=== PATIENT | male | born 1955 | race Caucasian/White ===

== ENCOUNTER 2021-11-06 17:23 | Observation (INO) ==
[2021-11-06] MEDS ORDERED: SODIUM CHLORIDE 0.9% 500 ML IV STA (18:00)
--- NOTE | 2021-11-06 18:15 | Emergency Department Note ---
Impression & Plan Precordial chest pain, Nausea, History of traumatic head injury ED Provider Note NAME: TRENT MAYA AGE: 66 SEX: M : 1955 ARRIVES VIA: Walk-In INFORMANT: [Patient] ED PROVIDER(S): [Julian Motley MD] CHIEF COMPLAINT: Nausea, chest pain HISTORY OF PRESENT ILLNESS: The patient is a 66-year-old male who did have a bit of chest pain last week. Today, he again had chest pain about 4 hours ago. He had 2 bouts each lasting about 15 minutes. The pain did come on at rest and lasted about 15 minutes. The pain was a 2/10. The pain did not radiate. He was not short of breath but he did sweat a bit and felt nauseated. He no longer has any chest discomfort and feels back to baseline. The patient has no diagnosed coronary disease. He did suffer some head trauma in the past and is asking for a CT of the head. He is concerned that the head trauma may have somehow led to his trouble today. There has been no cough or cold or congestion. No fever. He has not felt sick or ill otherwise. REVIEW OF SYSTEMS: See HPI for pertinent positives and negatives. A total of ten systems were reviewed and were otherwise negative. PMHx/PSHx: See Below SOCIAL HISTORY: See Below. PHYSICAL EXAM: GENERAL: Patient is in no acute distress. HEENT: No acute trauma, normocephalic atraumatic, mucous membranes moist, no nasal congestion, no scleral icterus. NECK: No stridor, no adenopathy, no meningismus, trachea is midline. LUNGS: Clear to auscultation bilaterally, no wheeze, no rhonchi, breath sounds equal. HEART: Without murmurs gallops or rubs, regular rate and rhythm. ABDOMEN: Soft, nontender, bowel sounds positive, no hernias, no peritonitis. EXTREMITIES: No cyanosis or edema, full range of motion of all the joints without pain or difficulty, no signs for acute trauma. NEUROLOGIC: Oriented x 3, no acute motor or sensory deficits, no focal weakness. SKIN: No rash, no jaundice, no diaphoresis. DIFFERENTIAL DIAGNOSIS: Cardiac ischemia, aortic dissection, pulmonary embolism, pneumothorax, pneumonia, pericarditis, myocarditis, esophageal rupture, GERD, cholecystitis, pancreatitis, musculoskeletal, intracranial bleeding, subdural or epidural hematoma, as well as other pathologies. EMERGENCY DEPARTMENT COURSE/PROCEDURES: ECG: Indication was chest pain. The ECG shows a normal sinus rhythm with a rate of 64. There is some LVH present. There is no ST elevation, no PVCs. So me nonspecific ST change was seen. The QTc is 462. Continuous Cardiac Monitoring: An order was placed for continuous cardiac monitoring. The monitor shows a rate of 69 with normal sinus rhythm. MEDICAL DECISION MAKING: There is no leukocytosis or concerning anemia. There is a normal platelet count. No coagulopathy. No significant electrolyte abnormality, no renal failure. No concerning liver enzyme elevation. No evidence for pancreatitis. The patient appeared to be in a euthyroid state. Covid test returned negative. Chest x-ray did not show pneumonia, mediastinal widening or pneumothorax. ECG showed a sinus rhythm, no obvious ischemia. Cardiac enzyme testing x1 was not consistent with acute cardiac injury. Brain CT showed no acute bleed or mass- effect. The patient received oral aspirin, he was given some IV saline. The patient presents with chest discomfort. The patient does have some cardiac risk factors. Given his presentation, I do think further cardiac work-up would be warranted. I do think a hospital stay is in order. I spoke with the patient, I talked to case management. The on-call hospitalist was consulted. Of note, I did perform a brain CT at his request. He had suffered some head trauma in the past and was concerned that some of his presentation today, in particular his nausea, could be caused from his head injury. Luckily, the brain CT was unremarkable. Past Med/Surg History Medical History Mixed conductive and sensorineural hearing loss Surgical History No pertinent past surgical history Family History Mother Myocardial infarction Denies family history of Ovarian cancer Prostate cancer Breast cancer Colorectal cancer Social History Smoking Status: Never smoker Tobacco Type: Smokeless Tobacco (Dip or Chew) Second Hand Exposure: No; Do You Dip or Chew Tobacco: No; Tobacco Cessation Education Requested by Patient: No Hx Alcohol Use: No Hx Substance Use: No Preferred Language: [place] Communication Ability: Effective District Court Judge Required: No Beliefs That Will Affect Care: None marital status: Current Living Situation: Spouse Current Living Situation Comment: With Family current occupational status: employed current occupation: Self Employeed How many Children do You have: 7 Other Information That Helps Us Care for You: No Feels Safe at Home: Yes Safety Concerns: Feels Safe At This Time Childhood Exposure to Second-Hand Smoke: No caffeine: Yes Dental Care, Regularly: No Physical Activity Frequency: 3-4 Times per Week Seatbelt Use: always Sunscreen Use: No Assistive Devices: None Allergies Allergies Allergy/AdvReac Type Severity Reaction Status Date / Time No Known Allergies Allergy Unverified 11/06/21 19:34 Home Meds Previous Rx's Medication Instructions Recorded hydrochlorothiazide 25 mg tablet 25 mg PO DAILY #90 tab 09/07/21 metoprolol tartrate 50 mg tablet 50 mg PO BID #180 tab 09/07/21 simvastatin 40 mg tablet 40 mg PO QPM #90 tab 09/07/21 sertraline 25 mg tablet 25 mg PO DAILY #30 tab 09/27/21 Results & Data (ED) Vital Signs Vital Signs - 24 hr 11/06/21 17:25 11/06/21 18:01 Temperature 36.8 C Temperature Source Temporal Artery Scan Pulse Rate 69 Respiratory Rate 22 Respiratory Effort / Characteristics Spontaneous Respiratory Depth Normal Respiratory Pattern Regular Blood Pressure 152/92 H Blood Pressure Mean 112 Blood Pressure Position Sitting Pulse Oximetry 93 Oxygen Delivery Method Room Air Room Air Sepsis Recent Fever Within 48 Hours No Sepsis New/Unexplained Change in Mental Status No Sepsis Action Taken by Nursing No Action Required Home Medications Current Medication List: was personally reviewed by me Laboratory Data Attestation: I reviewed the patient's lab results. Result diagrams: 11/06/21 18:16 11/06/21 18:16 Lab Results 11/06/21 11/06/21 11/06/21 Range/Units 18:16 18:16 18:16 WBC 7.43 (4.8-10.8) K/uL RBC 4.62 L (4.7-6.1) M/uL Hgb 14.6 (14.0-18.0) g/dL Hct 41.5 L (42-52) % MCV 89.8 (80-100) fL MCH 31.6 (25-34) pg MCHC 35.2 (32-36) g/dL RDW Std Deviation 47.8 H (36.4-46.3) fL RDW Coeff of Joanna 14.5 (11.5-14.5) % Plt Count 357 (130-400) K/uL MPV 9.8 (7.4-10.4) fL Immature Gran % (Auto) 0.1 % Neut % (Auto) 62.4 % Lymph % (Auto) 26.0 % [place] % (Auto) 10.2 % Eos % (Auto) 0.9 % Baso % (Auto) 0.4 % Neut # (Auto) 4.63 (1.4-6.5) K/uL Lymph # (Auto) 1.93 (1.2-3.4) K/uL [place] # (Auto) 0.76 H (0.11-0.59) K/uL Eos # (Auto) 0.07 (0-0.5) K/uL Baso # (Auto) 0.03 (0-0.2) K/uL Immature Gran # (Auto) 0.01 (0.00-0.02) K/uL PT (9.0-12.0) Seconds INR (0.9-1.1) APTT (21.0-31.0) Seconds PTT Ratio Sodium 136 (136-145) mmol/L Potassium 3.7 (3.5-5.1) mmol/L Chloride 100 (98-107) mmol/L Carbon Dioxide 26 (21-32) mmol/L Anion Gap 10 (3-11) BUN 13 (6-23) mg/dl Creatinine 0.81 (0.6-1.4) mg/dl Est Cr Clr Drug Dosing 90.0 ml/min Est GFR ( Amer) 108.9 ml/min Est GFR (Non-Af Amer) 93.9 ml/min BUN/Creatinine Ratio 16.0 (10-20) Glucose 96 (70-99(Fasting)) mg/dl Calcium 9.8 (8.5-10.1) mg/dl Magnesium 2.0 (1.7-2.4) mg/dl Total Bilirubin 0.5 (0.2-1.0) mg/dl AST 22 (13-39) U/L ALT 27 (7-52) U/L Alkaline Phosphatase 83 (34-104) U/L Troponin I < 0.03 (0-0.04) ng/ml Total Protein 7.6 (6.0-8.3) gm/dl Albumin 4.3 (3.4-5.0) gm/dl Globulin 3.3 (2.5-4.0) gm/dl Albumin/Globulin Ratio 1.3 (0.9-2) Lipase 36 (11-82) U/L TSH 2.618 (0.300-4.500) uIu/ml SARS-CoV-2, RNA, NAAT (NEGATIVE) 11/06/21 11/06/21 Range/Units 18:16 19:48 WBC (4.8-10.8) K/uL RBC (4.7-6.1) M/uL Hgb (14.0-18.0) g/dL Hct (42-52) % MCV (80-100) fL MCH (25-34) pg MCHC (32-36) g/dL RDW Std Deviation (36.4-46.3) fL RDW Coeff of Joanna (11.5-14.5) % Plt Count (130-400) K/uL MPV (7.4-10.4) fL Immature Gran % (Auto) % Neut % (Auto) % Lymph % (Auto) % [place] % (Auto) % Eos % (Auto) % Baso % (Auto) % Neut # (Auto) (1.4-6.5) K/uL Lymph # (Auto) (1.2-3.4) K/uL [place] # (Auto) (0.11-0.59) K/uL Eos # (Auto) (0-0.5) K/uL Baso # (Auto) (0-0.2) K/uL Immature Gran # (Auto) (0.00-0.02) K/uL PT 10.7 (9.0-12.0) Seconds INR 1.0 (0.9-1.1) APTT 26.2 (21.0-31.0) Seconds PTT Ratio 1.0 Sodium (136-145) mmol/L Potassium (3.5-5.1) mmol/L Chloride (98-107) mmol/L Carbon Dioxide (21-32) mmol/L Anion Gap (3-11) BUN (6-23) mg/dl Creatinine (0.6-1.4) mg/dl Est Cr Clr Drug Dosing ml/min Est GFR ( Amer) ml/min Est GFR (Non-Af Amer) ml/min BUN/Creatinine Ratio (10-20) Glucose (70-99(Fasting)) mg/dl Calcium (8.5-10.1) mg/dl Magnesium (1.7-2.4) mg/dl Total Bilirubin (0.2-1.0) mg/dl AST (13-39) U/L ALT (7-52) U/L Alkaline Phosphatase (34-104) U/L Troponin I (0-0.04) ng/ml Total Protein (6.0-8.3) gm/dl Albumin (3.4-5.0) gm/dl Globulin (2.5-4.0) gm/dl Albumin/Globulin Ratio (0.9-2) Lipase (11-82) U/L TSH (0.300-4.500) uIu/ml SARS-CoV-2, RNA, NAAT NEGATIVE (NEGATIVE) Administered Medications Metoprolol Tartrate (Metoprolol Tartrate 50 Mg Tab) 50 mg PO BID ALANNA Stop: 12/06/21 22:31 Last Admin: 11/06/21 23:39 Dose: 50 mg Documented by: [id number] Simvastatin (Simvastatin 40 Mg Tab) 40 mg PO QPM ALANNA Stop: 12/06/21 22:31 Last Admin: 11/06/21 23:39 Dose: 40 mg Documented by: [id number] Discontinued Medications Aspirin (Aspirin Chew 324 Mg) 324 mg PO NOW STA Stop: 11/06/21 19:40 Last Admin: 11/06/21 19:45 Dose: 324 mg Documented by: [id number] Sodium Chloride (Nss) 500 mls @ 999 mls/hr IV .Q31M STA Stop: 11/06/21 18:30 Last Infusion: 11/06/21 19:45 Dose: 0 mls/hr Documented by: [id number] Admin: 11/06/21 18:43 Dose: 999 mls/hr Documented by: [id number] Imaging Data Radiologist's Impression: Head CT 11/06/21 18:00 CT SCAN OF THE BRAIN WITHOUT IV CONTRAST CLINICAL HISTORY: Head injury. COMPARISON STUDY: CT of the brain dated 10/14/2021. TECHNIQUE: Unenhanced axial CT scan of the brain is performed from the vertex to the skull base. A dose lowering technique was utilized adhering to the principles of ALARA. CT DOSE: 1280.64 mGycm FINDINGS: Brain parenchyma: There are age-related involutional changes noting minimal subcortical and periventricular microangiopathic change. There is no hemorrhage, mass effect, or evidence of acute territorial ischemia by CT criteria. Small chronic lacunar infarcts are noted in the right internal capsule, the left caudate head, and the left thalamus. Alberts-white matter differentiation is preserved. No extra-axial fluid collection is seen. Mineralization is noted in the basal ganglia. Ventricles, sulci, cisterns: Prominent secondary to involutional change. Intracranial vasculature: There is atherosclerotic calcification of the cavernous carotid and vertebral arteries. Calvarium: No depressed calvarial fracture is identified. Sinuses and mastoids: There is trace mucosal thickening and a 13 mm retention cyst in the right maxillary antrum. The remaining visualized paranasal sinuses are clear. There are small mastoid effusions. Orbits: The bony orbits are grossly intact. IMPRESSION: There is no hemorrhage, mass effect, or evidence of acute territorial ischemia by CT criteria. ACT 112: Negative or not required by law. Electronically signed by: Julian Sheehan M.D. 11/06/2021 7:01 PM Chest X-Ray 11/06/21 18:01 SINGLE VIEW CHEST CLINICAL HISTORY: Atypical chest pain. FINDINGS: An AP, portable, upright chest radiograph is compared to study dated 11/15/2020. The heart is top normal for projection noting atherosclerotic calcification of the thoracic aorta. Atelectasis is noted at the left lung base. The lungs and pleural spaces are otherwise clear. No pneumothorax is seen. The bony thorax is grossly intact. IMPRESSION: No active disease in the chest. ACT 112: Negative or not required by law. Electronically signed by: Julian Sheehan M.D. 11/06/2021 7:44 PM Discharge Plan Visit Data Chief Complaint: Nausea Stated Complaint: NAUSEA, COLD SWEATS ED Provider: Julian Motley Discharge Problem: Precordial chest pain, Nausea, History of traumatic head injury Patient Disposition: Admitted As Inpatient Condition: Good Discharge Instructions Interventions: ED Discharge Assessment Last Done: 11/06/21 22:12
[2021-11-06 18:29] LABS: Basophils # (auto) 0.03 K/uL (0-0.2); Basophils % (auto) 0.4 %; Eosinophils # (auto) 0.07 K/uL (0-0.5); Eosinophils % (auto) 0.9 %; Hematocrit (blood only) 41.5 % (42-52); Hemoglobin 14.6 g/dL (14.0-18.0); Immature Granulocytes # (auto) 0.01 K/uL (0.00-0.02); Immature Granulocytes % (auto) 0.1 %; Lymphocytes # (auto) 1.93 K/uL (1.2-3.4); Mean Corpuscular Hemoglobin 31.6 pg (25-34); Mean Corpuscular Hgb Conc 35.2 g/dL (32-36); Mean Corpuscular Volume 89.8 fL (80-100); Mean Platelet Volume 9.8 fL (7.4-10.4); Monocytes # (auto) 0.76 K/uL (0.11-0.59); Monocytes % (auto) 10.2 %; Neutrophils # (auto) 4.63 K/uL (1.4-6.5); Neutrophils % (auto) 62.4 %; Platelet Count 357 K/uL (130-400); RDW Coefficient of Variation 14.5 % (11.5-14.5); RDW Standard Deviation 47.8 fL (36.4-46.3); Red Blood Count 4.62 M/uL (4.7-6.1); White Blood Count 7.43 K/uL (4.8-10.8)
[2021-11-06 18:40] LABS: Partial Thromboplastin Time 26.2 Seconds (21.0-31.0); Prothrombin Time 10.7 Seconds (9.0-12.0)
--- NOTE | 2021-11-06 19:02 | CT Scan Report ---
CT SCAN OF THE BRAIN WITHOUT IV CONTRAST CLINICAL HISTORY: Head injury. COMPARISON STUDY: CT of the brain dated 10/14/2021. TECHNIQUE: Unenhanced axial CT scan of the brain is performed from the vertex to the skull base. A do se lowering technique was utilized adhering to the principles of ALARA. CT DOSE: 1280.64 mGycm FINDINGS: Brain parenchyma: There are age-related involutional changes noting minimal subcortical and perivent ricular microangiopathic change. There is no hemorrhage, mass effect, or evidence of acute territoria l ischemia by CT criteria. Small chronic lacunar infarcts are noted in the right internal capsule, th e left caudate head, and the left thalamus. Alberts-white matter differentiation is preserved. No extra- axial fluid collection is seen. Mineralization is noted in the basal ganglia. Ventricles, sulci, cisterns: Prominent secondary to involutional change. Intracranial vasculature: There is atherosclerotic calcification of the cavernous carotid and vertebr al arteries. Calvarium: No depressed calvarial fracture is identified. Sinuses and mastoids: There is trace mucosal thickening and a 13 mm retention cyst in the right maxil briana antrum. The remaining visualized paranasal sinuses are clear. There are small mastoid effusions. Orbits: The bony orbits are grossly intact. IMPRESSION: There is no hemorrhage, mass effect, or evidence of acute territorial ischemia by CT stoney torres. ACT 112: Negative or not required by law. Electronically signed by: Julian Sheehan M.D. 11/06/2021 7:01 PM
[2021-11-06 19:07] LABS: Troponin I < 0.03 ng/ml (0-0.04)
[2021-11-06 19:18] LABS: Alanine Aminotransferase 27 U/L (7-52); Albumin Globulin Ratio 1.3 (0.9-2); Albumin Level 4.3 gm/dl (3.4-5.0); Alkaline Phosphatase 83 U/L (34-104); Anion Gap 10 (3-11); Aspartate Aminotransferase 22 U/L (13-39); Bilirubin,Total 0.5 mg/dl (0.2-1.0); Blood Urea Nitrogen 13 mg/dl (6-23); Calcium 9.8 mg/dl (8.5-10.1); Carbon Dioxide 26 mmol/L (21-32); Chloride 100 mmol/L (98-107); Est GFR (African American) 108.9 ml/min; Est GFR (Non-African American) 93.9 ml/min; Globulin 3.3 gm/dl (2.5-4.0); Glucose 96 mg/dl (70-99(Fasting)); Lipase 36 U/L (11-82); Potassium 3.7 mmol/L (3.5-5.1); Sodium 136 mmol/L (136-145); Total Protein 7.6 gm/dl (6.0-8.3)
[2021-11-06] MEDS ORDERED: ASPIRIN CHEW 324 MG PO STA (19:39)
--- NOTE | 2021-11-06 19:45 | XRay Report ---
SINGLE VIEW CHEST CLINICAL HISTORY: Atypical chest pain. FINDINGS: An AP, portable, upright chest radiograph is compared to study dated 11/15/2020. The heart i s top normal for projection noting atherosclerotic calcification of the thoracic aorta. Atelectasis i s noted at the left lung base. The lungs and pleural spaces are otherwise clear. No pneumothorax is s een. The bony thorax is grossly intact. IMPRESSION: No active disease in the chest. ACT 112: Negative or not required by law. Electronically signed by: Julian Sheehan M.D. 11/06/2021 7:44 PM
--- NOTE | 2021-11-06 20:44 | History & Physical Report ---
Date of Service November 06, 2021 Assessment & Plan (1) Chest pain at rest: Plan: Patient with 2 episodes of chest pain today- without radiation or other symptoms - He does endorse dyspnea with exertion- has never had cardiac workup performed - Risk factors include- tobacco use, HTN, HLD, obesity, - Initial ECG and Troponin I negative - ECHO in the morning- resting and/OR stress echo - NPO after midnight - cardiology consulted for further risk stratification - Continue with BB, ASA, Statin (2) HTN (hypertension): Plan: Not at goal - HCTZ and Metoprolol - Adjust if needed trend overnight (3) HLD (hyperlipidemia): Plan: Continue simvastatin 40mg daily - lipid panel in the morning - HGB A1C in the am (4) Anxiety: Plan: Continue Sertraline- started in September (5) Depression: Plan: As above History of Present Illness Primary Care Provider: AURA Asher 66 year old [facility] Male with past medical history of: HTN, HLD, Depression/Anxiety. Patient came to the EMD today for complaints of chest pain that occurred at rest. The pain was located just below the nipple and lateral clavicular line. The pain was reported as a sharp and stabbing pain that only lasted a few minutes, but did occur twice. The patient denies any radiation, or complaints of nausea/vomiting/diaphoresis. Patient does endorse that he has felt increase in fatigue over the past two weeks, and getting more short of breath when doing work. His reports that he has not been out working for the past 2-3 days. 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 This however was not associated with any chest pain as described above. Patient denies feeling any other illness recently or feeling sick. He was seen in the EMD on 10/14/21 for right sided facial/ear pain and was noted at that time to have an elevated ESR to 93- this pain has also resolved with steroid treatment. In the EMD the patient had routine labs drawn to include Troponin I, ECG, CXR completed, and a head CT for history of head trauma. The patient ECG has no dynamic changes when compared to his ECG from 11/17. His Troponin I was negative. Patient will be monitored on telemetry overnight, continue to trend his Troponin I, ECG in the am or with chest pain. NPO after midnight for cardiac risk stratification study pending overnight trends. ECHO in morning. Cards consulted for evaluation of possible stress ECHO. COVID test on admission is: NEGATIVE Allergies Allergy/AdvReac Type Severity Reaction Status Date / Time No Known Allergies Allergy Unverified 11/06/21 19:34 Home Medications Medication Instructions Recorded Confirmed Type hydrochlorothiazide 25 mg tablet 25 mg PO DAILY #90 tab 09/07/21 11/06/21 Rx metoprolol tartrate 50 mg tablet 50 mg PO BID #180 tab 09/07/21 11/06/21 Rx simvastatin 40 mg tablet 40 mg PO QPM #90 tab 09/07/21 11/06/21 Rx sertraline 25 mg tablet 25 mg PO DAILY #30 tab 09/27/21 11/06/21 Rx Past Med/Surg History Medical History Mixed conductive and sensorineural hearing loss Surgical History No pertinent past surgical history Family History Mother Myocardial infarction Denies family history of Ovarian cancer Prostate cancer Breast cancer Colorectal cancer Social History Smoking Status: Never smoker Tobacco Type: Smokeless Tobacco (Dip or Chew) Second Hand Exposure: No; Do You Dip or Chew Tobacco: No; Tobacco Cessation Education Requested by Patient: No Hx Alcohol Use: No Hx Substance Use: No Preferred Language: Kinyarwanda Communication Ability: Effective Superintendent Stevedoring Required: No Beliefs That Will Affect Care: None marital status: Current Living Situation: Spouse Current Living Situation Comment: With Family current occupational status: employed current occupation: Self Employeed How many Children do You have: 7 Other Information That Helps Us Care for You: No Feels Safe at Home: Yes Safety Concerns: Feels Safe At This Time Childhood Exposure to Second-Hand Smoke: No caffeine: Yes Dental Care, Regularly: No Physical Activity Frequency: 3-4 Times per Week Seatbelt Use: always Sunscreen Use: No Assistive Devices: None Review of Systems Review of Systems: REVIEW OF SYSTEMS: Constitutional: No fever, sweats or chills Eyes: No diplopia, no worsening or blurred vision ENT: normal hearing, no trouble swallowing Respiratory: (+) dyspnea on exertion, No cough, sputum, dyspnea at rest or Cardiovascular: (+) chest pain, tightness or palpitations Abdomen: No pain, nausea, vomiting, diarrhea or constipation Musculoskeletal: No joint pain, calf pain, swelling Neurologic: No weakness, numbness/tingling, or balance problems Psychiatric: No anxiety or depression Skin: No rash or itch Physical Exam Physical Exam: PHYSICAL EXAM: General: awake, alert, no apparent distress Head: Normocephalic, atraumatic ENT: PERRL, EOMI, no pharyngeal exudate, mucous membranes moist Neuro: AAO x 3, speech clear and appropriate, strength intact bilaterally 5/5, sensation intact and equal all extremities and dermatomes, no pronator drift Chest: equal rise and fall of the chest, no accessory muscle use, no heaves or thrills, Clear to auscultation, on room air, Cardiac: Regular rate and rhythm, telemetry reviewed, skin warm dry, cap refill <3 seconds, peripheral pulses +2 no JVD, no murmur, no edema GI: NABS x 4 quadrants, soft, nontender to palpation, no rebound, guarding or tenderness : Spontaneously voiding, no pain, no CVA tenderness, Extremities: Normal inspection, no peripheral edema or erythema, calfs nontender to palpation Psych: Normal mood and affect Skin: no rash or erythema Results & Data Results & Data ([facility]) Vital Signs (Past 12 Hours) Vital Signs Temp Pulse Resp BP Pulse Ox 11/06/21 17:25 36.8 C 69 22 152/92 H 93 Laboratory Results Abnormal lab results 11/06/21 Range/Units 18:16 RBC 4.62 L (4.7-6.1) M/uL Hct 41.5 L (42-52) % RDW Std Deviation 47.8 H (36.4-46.3) fL [place] # (Auto) 0.76 H (0.11-0.59) K/uL Diagnostic Findings Head CT 11/06/21 18:00 CT SCAN OF THE BRAIN WITHOUT IV CONTRAST CLINICAL HISTORY: Head injury. COMPARISON STUDY: CT of the brain dated 10/14/2021. TECHNIQUE: Unenhanced axial CT scan of the brain is performed from the vertex to the skull base. A dose lowering technique was utilized adhering to the pr inciples of EMMA. CT DOSE: 1280.64 mGycm FINDINGS: Brain parenchyma: There are age-related involutional changes noting minimal subcortical and periventricular microangiopathic change. There is no hemorrhage, mass effect, or evidence of acute territorial ischemia by CT criteria. Small chronic lacunar infarcts are noted in the right internal capsule, the left caudate head, and the left thalamus. Alberts-white matter differentiation is preserved. No extra-axial fluid collection is seen. Mineralization is noted in the basal ganglia. Ventricles, sulci, cisterns: Prominent secondary to involutional change. Intracranial vasculature: There is atherosclerotic calcification of the cavernous carotid and vertebral arteries. Calvarium: No depressed calvarial fracture is identified. Sinuses and mastoids: There is trace mucosal thickening and a 13 mm retention cyst in the right maxillary antrum. The remaining visualized paranasal sinuses are clear. There are small mastoid effusions. Orbits: The bony orbits are grossly intact. IMPRESSION: There is no hemorrhage, mass effect, or evidence of acute territorial ischemia by CT criteria. ACT 112: Negative or not required by law. Electronically signed by: Julian Sheehan M.D. 11/06/2021 7:01 PM Chest X-Ray 11/06/21 18:01 SINGLE VIEW CHEST CLINICAL HISTORY: Atypical chest pain. FINDINGS: An AP, portable, upright chest radiograph is compared to study dated 11/15/2020. The heart is top normal for projection noting atherosclerotic calcification of the thoracic aorta. Atelectasis is noted at the left lung base. The lungs and pleural spaces are otherwise clear. No pneumothorax is seen. The bony thorax is grossly intact. IMPRESSION: No active disease in the chest. ACT 112: Negative or not required by law. Electronically signed by: Julian Sheehan M.D. 11/06/2021 7:44 PM Medications Administered Home Medications hydrochlorothiazide 25 mg tablet 25 mg PO DAILY #90 tab 09/07/21 [Rx Confirmed 11/06/21] metoprolol tartrate 50 mg tablet 50 mg PO BID #180 tab 09/07/21 [Rx Confirmed 11/06/21] simvastatin 40 mg tablet 40 mg PO QPM #90 tab 09/07/21 [Rx Confirmed 11/06/21] sertraline 25 mg tablet 25 mg PO DAILY #30 tab 09/27/21 [Rx Confirmed 11/06/21] Discontinued Medications Aspirin (Aspirin Chew 324 Mg) 324 mg PO NOW STA Stop: 11/06/21 19:40 Last Admin: 11/06/21 19:45 Dose: 324 mg Documented by: [id number] Sodium Chloride (Nss) 500 mls @ 999 mls/hr IV .Q31M STA Stop: 11/06/21 18:30 Last Infusion: 11/06/21 19:45 Dose: 0 mls/hr Documented by: [id number] Admin: 11/06/21 18:43 Dose: 999 mls/hr Documented by: [id number] Additional Comments: Normal sinus rhythm Incomplete right bundle branch block Moderate voltage criteria for LVH, may be normal variant Nonspecific ST and T wave abnormality Prolonged QT Abnormal ECG Code Status & VTE Plan Code Status CODE: FULL VTE: SCDS, TEDS VTE Prophylaxis Plan VTE Prophylaxis will be ordered: Yes Supervising Physician Co-Signing Physician Notes Patient seen and examined, chart reviewed, case discussed with AURA Torres and I agree with the assessment and plan as documented above. In brief, patient is a 66-year-old [facility] male with history of hypertension, hyperlipidemia presenting with episode of chest pain. He reports increased fatigue and decreased exercise tolerance over the last several weeks. No known history of cardiac disease. On physical exam patient is afebrile, hemodynamically stable, no acute distress Skin is warm, dry, intact, HEENT with moist mucous membranes, neck supple Heartpositive S1/S2, regular, no murmurs/rubs/gallops, no reproducible chest wall discomfort Lungs CTA Abdomen soft nontender nondistended Extremities are warm and well-perfused with no clubbing, cyanosis, edema Labs and images reviewed. Electrolytes are within normal limits. Troponin x1 = negative, EKG with incomplete right bundle branch block moderate criteria for LVH nonspecific ST and T wave changes Assessment/plan 66-year-old [place] male presenting with chest pain occurring at rest as well as decreased exercise tolerance, fatigue and dyspnea on exertion. Risk factors include hypertension and hyperlipidemia as well as family history of cardiac disease (unsure at what age) Observation to medical telemetry monitoring Trend cardiac enzymes Check hemoglobin A1c and lipid panel Check 2D echo in the morning Cardiology consultation appreciated Consider stress testing while here Remainder of plan as above PG Care Time/CCT Total # of Minutes Spent Total Time Spent with Patient: Total time spent is greater than 50% in coordination of care (as documented) at patient's floor/unit and/or counseling patient: Coding Level of Care Code INT OBSERVATION CARE 70M LVL 3 Diagnoses Chest pain at rest R07.9 HTN (hypertension) I10 HLD (hyperlipidemia) E78.5 Anxiety F41.9 Depression F32.9
[2021-11-06] MEDS ORDERED: SIMVASTATIN 40 MG TAB PO SCH (22:32)
[2021-11-06] MEDS ORDERED: ACETAMINOPHEN 325 MG TAB PO PRN (22:32)
[2021-11-06] MEDS ORDERED: NITROGLYCERIN SL 0.4 MG/TAB TAB SL PRN (22:32)
[2021-11-06] MEDS: METOPROLOL TARTRATE 50 MG TAB PO SCH (23:39)
[2021-11-07 07:51] LABS: Basophils # (auto) 0.05 K/uL (0-0.2); Basophils % (auto) 0.7 %; Eosinophils # (auto) 0.08 K/uL (0-0.5); Eosinophils % (auto) 1.1 %; Hemoglobin 14.5 g/dL (14.0-18.0); Immature Granulocytes # (auto) 0.02 K/uL (0.00-0.02); Immature Granulocytes % (auto) 0.3 %; Lymphocytes # (auto) 1.73 K/uL (1.2-3.4); Mean Corpuscular Hemoglobin 30.9 pg (25-34); Mean Corpuscular Hgb Conc 33.7 g/dL (32-36); Mean Corpuscular Volume 91.7 fL (80-100); Mean Platelet Volume 9.6 fL (7.4-10.4); Monocytes # (auto) 0.66 K/uL (0.11-0.59); Monocytes % (auto) 9.2 %; Neutrophils # (auto) 4.66 K/uL (1.4-6.5); Neutrophils % (auto) 64.7 %; Platelet Count 334 K/uL (130-400); RDW Coefficient of Variation 14.5 % (11.5-14.5); RDW Standard Deviation 48.9 fL (36.4-46.3); Red Blood Count 4.69 M/uL (4.7-6.1)
[2021-11-07 08:18] LABS: Troponin I < 0.03 ng/ml (0-0.04)
[2021-11-07 08:34] LABS: Anion Gap 8 (3-11); BUN Creatinine Ratio 16.5 (10-20); Blood Urea Nitrogen 13 mg/dl (6-23); Calcium 9.2 mg/dl (8.5-10.1); Carbon Dioxide 28 mmol/L (21-32); Chloride 103 mmol/L (98-107); Chol HDL Ratio 6.6 (0-5); Cholesterol 251 mg/dl (0-200); Creatinine Clr Calc Pharmacy 92.3 ml/min; Est GFR (Non-African American) 94.9 ml/min; Glucose 103 mg/dl (70-99(Fasting)); HDL Cholesterol 38 mg/dl; LDL Cholesterol Calculated 181 mg/dl; Magnesium 1.9 mg/dl (1.7-2.4); Potassium 3.9 mmol/L (3.5-5.1); Sodium 139 mmol/L (136-145); Triglycerides 160 mg/dl (0-150); VLDL Cholesterol 32 mg/dl (0-30)
[2021-11-07] MEDS: METOPROLOL TARTRATE 50 MG TAB PO SCH (08:46)
[2021-11-07] MEDS ORDERED: SERTRALINE HCL 50 MG TABLET PO SCH (09:00)
[2021-11-07] MEDS ORDERED: hydroCHLOROthiazide 25 MG TAB PO SCH (09:00)
[2021-11-07] MEDS ORDERED: ASPIRIN 81 MG ECTAB PO SCH (09:00)
[2021-11-07 09:01] LABS: Estimated Average Glucose 128 mg/dl; Hemoglobin A1C 6.1 % (4.5-5.6)
--- NOTE | 2021-11-07 09:46 | Cardiology Consultation ---
Date of Consultation November 07, 2021 Assessment & Plan (1) Chest pain at rest: Mr. Somers is a 66 year old Jewish male with a history of Hypertension, Dyslipidemia, Cerebrovascular Disease (small vessel), Anxiety, Depression, and a history of Traumatic Brain Injury who was admitted to [facility] on 11/06/21 with an Atypical Chest Pain Syndrome. Patient presented with 2 episodes of left inframammary chest pain that occurred on 11/06/21 -- patient has difficulty describing the pain but states it was not a sharp chest pain. Each episode of chest pain lasted about 10 minutes. His chest pain did not radiate, but he had some associated sweating. He denies any associated nausea, vomiting, or dyspnea. His chest pain was unrelated to exertion and it was not pleuritic. He has not had any further chest pain since being admitted. His cardiac risk factors include uncontrolled hypertension, poorly controlled dyslipidemia, chewing tobacco use, and his mother had a heart attack at the age of 69. Thus far, his troponin I level is undetectable, EKG shows no acute changes but is likely consistent with LVH, and an echocardiogram was done this morning, but has not been read yet. I have reassured him that his chest pain is atypical and not consistent with myocardial ischemia/angina pectoris -- however, further evaluation is recommended. Recommend the following: -- Stress Echocardiogram today -- if negative, may discharge to home. -- Agree with increased beta roxana dose, convert to Metoprolol Succinate ER 100 mg at the time of discharge. -- Continue Aspirin 81 mg daily for primary prevention, and also for his cerebrovascular disease. -- Cholesterol is not at goal; increase Simvastatin to 80 mg daily or convert to Atorvastatin 80 mg daily or Crestor 40 mg daily. (2) HTN (hypertension): BP is not controlled. -- Agree with increased beta roxana dose, convert to Metoprolol Succinate ER 100 mg at the time of discharge. -- Continue Hydrochlorothiazide 25 mg daily. -- Recommend adding an ACEI or ARB and doing follow-up basic metabolic panel. (3) HLD (hyperlipidemia): Fasting Lipid Panel 11/07/21 shows a total cholesterol of 251 mg/dL, HDL is 38 mg/dL, and LDL is 181 mg/dL. TC:HDL ratio is 6.6 -- Cholesterol is not at goal; increase Simvastatin to 80 mg daily or convert to Atorvastatin 80 mg daily or Crestor 40 mg daily. -- If an LDL of less than 100 mg/dL cannot be achieved on max dose statin therapy, would recommend adding Repatha 140 mg subcutaneous injection every 2 weeks. Supervising Physician Co-Signing Physician Notes Agree with above as noted by Mr. King with following additions: Patient reports 2 separate episodes of chest discomfort on 11/06/2021. Both occurred left lower portion of the chest without associated dyspnea. Chest discomfort occurred at rest and spontaneously resolved within 10 minutes. He otherwise is very active and has not had any chest discomfort. He has chronic dyspnea with exertion which is stable and occurs only on occasion. He denies edema or bleeding. He has not had any further chest discomfort here. He underwent stress echo earlier today and did not attain target heart rate due to leg fatigue. Despite this, he achieved 7 METS and had no chest discomfort. Stress echo images demonstrated wall segments augmenting appropriately. Exam: General: No acute distress. Cardiac: Regular. No murmur. Lungs: Clear to auscultation bilaterally. Extremities: No pitting edema. No cyanosis. ECG personally reviewed from 11/06/2021 at 6:20 p.m.: Sinus 64 beats per minute. Incomplete RBBB. Nonspecific T-wave abnormality. Stress Echo: Normal LV size, wall motion, systolic function. No ischemic changes noted on stress echo imaging however nondiagnostic as target heart rate was not attained. He had received his morning dose of beta-roxana. ASSESSMENT/PLAN: 1. 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 Negative troponin. No dynamic ST change. Stress echo imaging did not demonstrate ischemic changes at suboptimal exercise but did achieve 7 METS without chest discomfort (presenting symptom). If he has recurrent symptoms, recommended that he seek immediate medical attention and call 911 for symptoms that do not resolve within 5 minutes. If recurs and no obvious ischemia on initial workup, could consider myocardial perfusion study which is not dependent on heart rate. 2. Hypertension: Blood pressure suboptimally controlled and mostly hypertensive while hospitalized. Can titrate medical therapy as appropriate. Consider MADHURI- inhibitor or calcium channel blockers such as amlodipine. 3. Dyslipidemia: LDL is severely elevated and HDL is low. Recommend high- intensity statin therapy in place of simvastatin. Consider atorvastatin 80 mg daily or rosuvastatin 40 mg daily. 4. Disposition: Follow-up closely with PCP. Plan communicated with primary service. History of Present Illness Reason for Consultation: -- Chest Pain. -- Cardiac Risk Factors. Requesting Physician: Edison Nath MD Attending Physician: Colton Oliva MD History of Present Illness Mr. Somers is a 66 year old Jewish male with a history of Hypertension, Dyslipidemia, Cerebrovascular Disease (small vessel), Anxiety, Depression, and a history of Traumatic Brain Injury who was admitted to [facility] on 11/06/21 after presenting with 2 episodes of left inframammary chest pain earlier in the day -- patient has difficulty describing the pain but states it was not a sharp chest pain. Each episode of chest pain lasted about 10 minutes. His chest pain did not radiate, but he had some associated sweating. He denies any associated nausea, vomiting, or dyspnea. His chest pain was unrelated to exertion and it was not pleuritic. He has not had any further chest pain since being admitted. 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 Patient offers no other complaints. He denies any fevers, chills, cough, or hemoptysis. He denies any leg swelling. Patient specifically denies any exertional chest pain, heaviness, tightness, pressure, or discomfort. He denies any exertional neck, jaw, back, or arm pain. He denies any shortness of breath at rest, orthopnea, or PND. He denies any palpitations, syncope, or near syncope. His cardiac risk factors include uncontrolled hypertension, poorly controlled dyslipidemia, chewing tobacco use, and his mother had a heart attack at the age of 69. Allergies Allergy/AdvReac Type Severity Reaction Status Date / Time No Known Allergies Allergy Unverified 11/06/21 19:34 Home Medications Medication Instructions Recorded Confirmed Type hydrochlorothiazide 25 mg tablet 25 mg PO DAILY #90 tab 09/07/21 11/06/21 Rx metoprolol tartrate 50 mg tablet 50 mg PO BID #180 tab 09/07/21 11/06/21 Rx simvastatin 40 mg tablet 40 mg PO QPM #90 tab 09/07/21 11/06/21 Rx sertraline 25 mg tablet 25 mg PO DAILY #30 tab 09/27/21 11/06/21 Rx Patient History Medical History Mixed conductive and sensorineural hearing loss Surgical History No pertinent past surgical history Family History Mother Myocardial infarction Denies family history of Ovarian cancer Prostate cancer Breast cancer Colorectal cancer Social History Smoking Status: Never smoker Tobacco Type: Smokeless Tobacco (Dip or Chew) Second Hand Exposure: No; Do You Dip or Chew Tobacco: No; Tobacco Cessation Education Requested by Patient: No Hx Alcohol Use: No Hx Substance Use: No Preferred Language: Occitan Communication Ability: Effective Radio Maintainer Required: No Beliefs That Will Affect Care: None marital status: Current Living Situation: Spouse Current Living Situation Comment: With Family current occupational status: employed current occupation: Self Employeed How many Children do You have: 7 Other Information That Helps Us Care for You: No Feels Safe at Home: Yes Safety Concerns: Feels Safe At This Time Childhood Exposure to Second-Hand Smoke: No caffeine: Yes Dental Care, Regularly: No Physical Activity Frequency: 3-4 Times per Week Seatbelt Use: always Sunscreen Use: No Assistive Devices: None Physical Exam Physical Exam: GENERAL: Patient in no acute distress. HEENT: Head is atraumatic, normocephalic. EOM's intact. Facies symmetric. No perioral cyanosis. NECK: No JVD. JVP is not elevated. Carotid upstrokes are + 2 bilaterally. No bruits are noted. CHEST/LUNGS: Clear to auscultation throughout all lung velasco. No wheezes, rales, or crackles. CVS: S1 and S2 are regular without obvious murmurs, gallops, or rubs. PMI is nonpalpable. No lifts, heaves, or thrills. No abdominal aortic or renal bruits. No reproducible chest wall tenderness to palpation. ABDOMINAL EXAM: Bowel sounds are present. No masses, organomegaly, or tenderness. EXTREMITIES: No clubbing or cyanosis. No edema. Intact posterior tibial and radial pulses bilaterally. NEUROLOGIC EXAM: Patient is awake, alert, and oriented. Pleasant and cooperative, but affect is flat. Answers questions appropriately. Speech is clear. Normal movement in all 4 extremities. Correspondence Transcriber: -- NSR with rates between 60 up to the mid 80's. EKG 11/06/21: -- Normal sinus rhythm with an incomplete right bundle branch block. -- Moderate voltage criteria for LVH, may be normal variant. -- Nonspecific ST and T wave abnormality. -- Abnormal EKG. -- When compared with EKG of 15-NOV-2020 11:00; Nonspecific T wave abnormality has replaced inverted T waves in Inferior leads. Stress Echocardiogram ordered. Results & Data ([facility]) Vital Signs (Past 12 Hours) Vital Signs Temp Pulse Pulse Resp BP Pulse Ox 11/07/21 08:00 36 C L 68 18 165/79 H 93 11/07/21 04:22 79 11/07/21 02:54 36.8 C 58 L 18 146/85 H 94 11/06/21 22:56 36.5 C 85 18 135/78 92 Laboratory Results Laboratory Results - last 24 hr 11/06/21 11/06/21 11/06/21 18:16 18:16 18:16 WBC 7.43 RBC 4.62 L Hgb 14.6 Hct 41.5 L MCV 89.8 MCH 31.6 MCHC 35.2 RDW Std Deviation 47.8 H RDW Coeff of Joanna 14.5 Plt Count 357 MPV 9.8 Immature Gran % (Auto) 0.1 Neut % (Auto) 62.4 Lymph % (Auto) 26.0 Scott % (Auto) 10.2 Eos % (Auto) 0.9 Baso % (Auto) 0.4 Neut # (Auto) 4.63 Lymph # (Auto) 1.93 Scott # (Auto) 0.76 H Eos # (Auto) 0.07 Baso # (Auto) 0.03 Immature Gran # (Auto) 0.01 ESR PT INR APTT PTT Ratio Sodium 136 Potassium 3.7 Chloride 100 Carbon Dioxide 26 Anion Gap 10 BUN 13 Creatinine 0.81 Est Cr Clr Drug Dosing 90.0 Est GFR ( Amer) 108.9 Est GFR (Non-Af Amer) 93.9 BUN/Creatinine Ratio 16.0 Glucose 96 Estimat Average Glucose Hemoglobin A1c Calcium 9.8 Magnesium 2.0 Total Bilirubin 0.5 AST 22 ALT 27 Alkaline Phosphatase 83 Troponin I < 0.03 Total Protein 7.6 Albumin 4.3 Globulin 3.3 Albumin/Globulin Ratio 1.3 Triglycerides Cholesterol LDL Cholesterol, Calc VLDL Cholesterol, Calc HDL Cholesterol Cholesterol/HDL Ratio Lipase 36 TSH 2.618 SARS-CoV-2, RNA, NAAT 11/06/21 11/06/21 11/07/21 18:16 19:48 07:37 WBC RBC Hgb Hct MCV MCH MCHC RDW Std Deviation RDW Coeff of Joanna Plt Count MPV Immature Gran % (Auto) Neut % (Auto) Lymph % (Auto) Scott % (Auto) Eos % (Auto) Baso % (Auto) Neut # (Auto) Lymph # (Auto) Scott # (Auto) Eos # (Auto) Baso # (Auto) Immature Gran # (Auto) ESR 37 H PT 10.7 INR 1.0 APTT 26.2 PTT Ratio 1.0 Sodium Potassium Chloride Carbon Dioxide Anion Gap BUN Creatinine Est Cr Clr Drug Dosing Est GFR ( Amer) Est GFR (Non-Af Amer) BUN/Creatinine Ratio Glucose Estimat Average Glucose Hemoglobin A1c Calcium Magnesium Total Bilirubin AST ALT Alkaline Phosphatase Troponin I Total Protein Albumin Globulin Albumin/Globulin Ratio Triglycerides Cholesterol LDL Cholesterol, Calc VLDL Cholesterol, Calc HDL Cholesterol Cholesterol/HDL Ratio Lipase TSH SARS-CoV-2, RNA, NAAT NEGATIVE 11/07/21 11/07/21 11/07/21 07:37 07:37 07:37 WBC 7.20 RBC 4.69 L Hgb 14.5 Hct 43.0 MCV 91.7 MCH 30.9 MCHC 33.7 RDW Std Deviation 48.9 H RDW Coeff of Joanna 14.5 Plt Count 334 MPV 9.6 Immature Gran % (Auto) 0.3 Neut % (Auto) 64.7 Lymph % (Auto) 24.0 Scott % (Auto) 9.2 Eos % (Auto) 1.1 Baso % (Auto) 0.7 Neut # (Auto) 4.66 Lymph # (Auto) 1.73 Scott # (Auto) 0.66 H Eos # (Auto) 0.08 Baso # (Auto) 0.05 Immature Gran # (Auto) 0.02 ESR PT INR APTT PTT Ratio Sodium 139 Potassium 3.9 Chloride 103 Carbon Dioxide 28 Anion Gap 8 BUN 13 Creatinine 0.79 Est Cr Clr Drug Dosing 92.3 Est GFR ( Amer) 110.0 Est GFR (Non-Af Amer) 94.9 BUN/Creatinine Ratio 16.5 Glucose 103 H Estimat Average Glucose 128 Hemoglobin A1c 6.1 H Calcium 9.2 Magnesium 1.9 Total Bilirubin AST ALT Alkaline Phosphatase Troponin I < 0.03 Total Protein Albumin Globulin Albumin/Globulin Ratio Triglycerides 160 H Cholesterol 251 H LDL Cholesterol, Calc 181 VLDL Cholesterol, Calc 32 H HDL Cholesterol 38 Cholesterol/HDL Ratio 6.6 H Lipase TSH SARS-CoV-2, RNA, NAAT Diagnostic Findings CXR 11/06/21: An AP, portable, upright chest radiograph is compared to study dated 11/15/2020. The heart is top normal for projection noting atherosclerotic calcification of the thoracic aorta. Atelectasis is noted at the left lung base. The lungs and pleural spaces are otherwise clear. No pneumothorax is seen. The bony thorax is grossly intact. IMPRESSION: -- No active disease in the chest. CT SCAN HEAD 11/06/21: Brain parenchyma: There are age-related involutional changes noting minimal subcortical and periventricular microangiopathic change. There is no hemorrhage, mass effect, or evidence of acute territorial ischemia by CT criteria. Small chronic lacunar infarcts are noted in the right internal capsule, the left caudate head, and the left thalamus. Alberts-white matter differentiation is preserved. No extra-axial fluid collection is seen. Mineralization is noted in the basal ganglia. Ventricles, sulci, cisterns: Prominent secondary to involutional change. Intracranial vasculature: There is atherosclerotic calcification of the cavernous carotid and vertebral arteries. Calvarium: No depressed calvarial fracture is identified. Sinuses and mastoids: There is trace mucosal thickening and a 13 mm retention cyst in the right maxillary antrum. The remaining visualized paranasal sinuses are clear. There are small mastoid effusions. Orbits: The bony orbits are grossly intact. IMPRESSION: -- There is no hemorrhage, mass effect, or evidence of acute territorial ischemia by CT criteria. Medications Administered Medication List Aspirin (Aspirin 81 Mg Ectab) 81 mg PO QAM [facility] Stop: 12/07/21 08:59 Last Admin: 11/07/21 08:46 Dose: 81 mg Documented by: [id number] Hydrochlorothiazide (Hydrochlorothiazide 25 Mg Tab) 25 mg PO DAILY [facility] Stop: 12/07/21 08:59 Last Admin: 11/07/21 08:46 Dose: 25 mg Documented by: [id number] Metoprolol Tartrate (Metoprolol Tartrate 50 Mg Tab) 50 mg PO BID ALANNA Stop: 12/06/21 22:31 Last Admin: 11/07/21 08:46 Dose: 50 mg Documented by: [id number] Admin: 11/06/21 23:39 Dose: 50 mg Documented by: [id number] Sertraline HCl (Sertraline Hcl 50 Mg Tablet) 25 mg PO DAILY ALANNA Stop: 12/07/21 08:59 Last Admin: 11/07/21 08:47 Dose: 25 mg Documented by: [id number] Simvastatin (Simvastatin 40 Mg Tab) 40 mg PO QPM ALANNA Stop: 12/06/21 22:31 Last Admin: 11/06/21 23:39 Dose: 40 mg Documented by: [id number] Discontinued Medications Aspirin (Aspirin Chew 324 Mg) 324 mg PO NOW STA Stop: 11/06/21 19:40 Last Admin: 11/06/21 19:45 Dose: 324 mg Documented by: [id number] Sodium Chloride (Nss) 500 mls @ 999 mls/hr IV .Q31M STA Stop: 11/06/21 18:30 Last Infusion: 11/06/21 19:45 Dose: 0 mls/hr Documented by: [id number] Admin: 11/06/21 18:43 Dose: 999 mls/hr Documented by: [id number] PG Care Time/CCT Total # of Minutes Spent Total Time Spent with Patient: Total time spent is greater than 50% in coordination of care (as documented) at patient's floor/unit and/or counseling patient:35 Coding Level of Care Code INT OBSERVATION CARE 50M LVL 2 Diagnoses Chest pain at rest R07.9 HTN (hypertension) I10 HLD (hyperlipidemia) E78.5 Time Spent (min) 57
--- NOTE | 2021-11-07 12:44 | XCELERA ---
[id number]
[2021-11-07] MEDS ORDERED: lisinopril 10 MG TAB PO SCH (14:30)
[2021-11-07 15:12] LABS: D Dimer 330 ug/L FEU (0-500)
[2021-11-07 15:49] VITALS: BP 148/77; PULSE 66; TEMP 98.2; O2SAT 91
--- NOTE | 2021-11-07 16:35 | Discharge Summary ---
Date of Service November 07, 2021 Admission HPI Per Admitting Provider 66 year old [facility] Male with past medical history of: HTN, HLD, Depression/Anxiety. Patient came to the EMD today for complaints of chest pain that occurred at rest. The pain was located just below the nipple and lateral clavicular line. The pain was reported as a sharp and stabbing pain that only lasted a few minutes, but did occur twice. The patient denies any radiation, or complaints of nausea/vomiting/diaphoresis. Patient does endorse that he has felt increase in fatigue over the past two weeks, and getting more short of breath when doing work. His reports that he has not been out working for the past 2-3 days. 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 This however was not associated with any chest pain as described above. Patient denies feeling any other illness recently or feeling sick. He was seen in the EMD on 10/14/21 for right sided facial/ear pain and was noted at that time to have an elevated ESR to 93- this pain has also resolved with steroid treatment. In the EMD the patient had routine labs drawn to include Troponin I, ECG, CXR completed, and a head CT for history of head trauma. The patient ECG has no dynamic changes when compared to his ECG from 11/17. His Troponin I was negative. Patient will be monitored on telemetry overnight, continue to trend his Troponin I, ECG in the am or with chest pain. NPO after midnight for cardiac risk stratification study pending overnight trends. ECHO in morning. Cards consulted for evaluation of possible stress ECHO. COVID test on admission is: NEGATIVE Principal Diagnosis 1. Chest painacute coronary syndrome ruled out 2. Accelerated BPcould be contributing to #1 3. Uncontrolled dyslipidemia 4. Tobacco abusestrongly recommend cessation Discharge Exam General: Resting comfortably in his hospital bed. NAD. HEENT: Head is AT/NC. Buccal mucosa is moist and pink Neck: No JVD. Negative hepatojugular reflex Cardiac: RRR with 1/6 NESTOR. No rash or lesion noted to the chest wall. Nontender to palpation to the anterior/lateral and posterior chest wall. Lungs: CTA without W/R/R Abdomen: Normoactive X4. Soft and nontender in all quadrants. Extremities: No peripheral clubbing cyanosis or edema Neuro: A&O X4. Cranial nerves II through XII are grossly intact. No focal neuro deficits Skin: No obvious skin lesions or rashes Psych: Appropriate affect. Pleasant and cooperative Discharge Data Allergies Allergy/AdvReac Type Severity Reaction Status Date / Time No Known Allergies Allergy Unverified 11/06/21 19:34 Consultations 11/06/21 19:45 ED Decision to Admit Stat 11/06/21 22:32 Consult Cardiology Routine Assessment & Plan (1) Chest pain at rest: Mr. Somers is a 66 year old [place] male with a history of Hypertension, Dyslipidemia, Cerebrovascular Disease (small vessel), Anxiety, Depression, and a history of Traumatic Brain Injury who was admitted to [facility] on 11/06/21 with an Atypical Chest Pain Syndrome. Patient presented with 2 episodes of left inframammary chest pain that occurred on 11/06/21 -- patient has difficulty describing the pain but states it was not a sharp chest pain. Each episode of chest pain lasted about 10 minutes. His chest pain did not radiate, but he had some associated sweating. He denies any associated nausea, vomiting, or dyspnea. His chest pain was unrelated to exertion and it was not pleuritic. He has not had any further chest pain since being admitted. His cardiac risk factors include uncontrolled hypertension, poorly controlled dyslipidemia, chewing tobacco use, and his mother had a heart attack at the age of 69. Thus far, his troponin I level is undetectable, EKG shows no acute changes but is likely consistent with LVH, and an echocardiogram was done this morning, but has not been read yet. I have reassured him that his chest pain is atypical and not consistent with myocardial ischemia/angina pectoris -- however, further evaluation is recommended. Recommend the following: -- Stress Echocardiogram today -- if negative, may discharge to home. -- Agree with increased beta roxana dose, convert to Metoprolol Succinate ER 100 mg at the time of discharge. -- Continue Aspirin 81 mg daily for primary prevention, and also for his cerebrovascular disease. -- Cholesterol is not at goal; increase Simvastatin to 80 mg daily or convert to Atorvastatin 80 mg daily or Crestor 40 mg daily. (2) HTN (hypertension): BP is not controlled. -- Agree with increased beta roxana dose, convert to Metoprolol Succinate ER 100 mg at the time of discharge. -- Continue Hydrochlorothiazide 25 mg daily. -- Recommend adding an ACEI or ARB and doing follow-up basic metabolic panel. (3) HLD (hyperlipidemia): Fasting Lipid Panel 11/07/21 shows a total cholesterol of 251 mg/dL, HDL is 38 mg/dL, and LDL is 181 mg/dL. TC:HDL ratio is 6.6 -- Cholesterol is not at goal; increase Simvastatin to 80 mg daily or convert to Atorvastatin 80 mg daily or Crestor 40 mg daily. -- If an LDL of less than 100 mg/dL cannot be achieved on max dose statin therapy, would recommend adding Repatha 140 mg subcutaneous injection every 2 weeks. Ordered Studies 11/06/21 18:00 CT head/brain wo con Stat IMPRESSION: There is no hemorrhage, mass effect, or evidence of acute territorial ischemia by CT criteria. CXR: IMPRESSION: No active disease in the chest. Hospital Course (1) Chest pain at rest: 66-year-old white male with an underlying medical history of tobacco abuse, HTN, HLD. Presented with 2 separate episodes of chest pain with associated shortness of breath and diaphoresis -EKG nonacute -Troponin cycled and has remained negative. Acute coronary syndrome has ruled -Stress echocardiogram nondiagnostic but no reproducible chest pain are noted evidence of myocardial ischemia -Lipid panel obtained for risk stratification showing uncontrolled dyslipidemia. Cardiology recommending transition of atorvastatin to high intensity statin therapy. Will convert to Crestor 40 mg daily --Will need follow-up CMP in 1 month to trend LFTs. In addition, will need follow-up lipid panel in 3 months. If cholesterol remains off target, may need to consider Repatha as recommended by cardiology -has been seen by Cardiology-- appreciate assistance. Despite negative stress testing, cardiology recommending addition of aspirin given risk factors. Will initiate 81 mg daily -His blood pressure has been quite elevated. This could be contributing to his chest pain. Will initiate lisinopril 10 mg daily. Patient will need follow-up labs in 2 to 4 weeks to trend renal function in addition to follow-up on his BP -D-dimer obtained and has since come back negative. Do not suspect underlying PE as a cause of his chest pain. Again, likely related to accelerated BP -No rash or evidence of zoster. Is not reproducible on exam At this point time, patient has ruled out for acute coronary syndrome. He had a stress echocardiogram that showed no evidence of ischemia. Currently without chest pain. Has beenseen by cardiology. He is currently medically and hemodynamically stable for discharge to home with medication changes as outlined: -- addition of lisinopril 10mg daily --changed zocor to crestor (high intensity statin) --addition of ASA -Cardiology recommended changing metoprolol tartrate 50 mg twice daily to s uccinate 100 mg daily. I did discuss this with them and for now we will keep his metoprolol tartrate at 50 mg twice daily. Heart rate currently 66 and I do not think he will tolerate this up titration. In addition, he is used to taking tartrate twice daily. I am fearful that with switching to succinate once a day, he will continue taking it twice daily and subsequently bottom out his heart rat e and blood pressure. Cardiology agrees with this. (2) HTN (hypertension): -Takes HCTZ 25 mg daily along with metoprolol tartrate 50 mg twice daily -Have since added lisinopril 10 mg daily due to accelerated BP -Follow-up with PCP within 7 to 10 days. If BP controlled, consider transition to lisinopril/HCTZ for convenience--> at discretion of PCP (3) HLD (hyperlipidemia): -Lipid panel obtained for risk stratification showing uncontrolled dyslipidemia -Transition Zocor to Crestor 40 mg daily (high intensity statin) -Recommend follow-up CMP in 1 month and repeat lipid panel in 3 months. -If cholesterol still not to goal, consider Repatha (4) Anxiety: Continue Sertraline- started in September (5) Depression: As above Plan of care discussed with cardiology. Appreciate assistance. Plan of care discussed with Dr. Nath who agrees with plan for discharge home today Total Time Total Time Spent Total Time Spent (In Minutes): 35 Discharge Plan Discharge Items Patient Disposition: Home - Self-Care Reason For Visit: CHEST PAIN Discharge Diagnosis: 1. Chest Pain- Acute Coronary Syndrome ruled out. 2. Accelerated Blood pressure- may be contributing to chest pain 3. Uncontrolled Hyperlipidemia (elevated cholesterol) Condition on Discharge: Good Activity: Resume your previous activity Activity Comment: as tolerated Non-emergency contact: Primary Care Provider and Career Services Manager Call non-emergency contact if: you have any medication questions Follow-up/Referrals: Didi Posadas CRNP [Primary Care Provider] - Diet: Heart Healthy Addtl Attending Provider Instructions: You presented to the hospital with intermittent chest pain, shortness of breath, and sweating You did not have a heart attack. You had a stress echocardiogram that showed no evidence of ischemia (or decreased blood flow to the heart) with exertion. You did not have chest pain during this test. Your blood pressure has been elevated throughout this hospital stay. It is quite possible that this is contributing to your chest pain. For added blood pressure control, you are being started on lisinopril. Continue your metoprolol Your Zocor (simvastatin) has been transitioned to Crestor for added cholesterol control as this is also elevated. Last, you have been started on aspirin prophylactically (preventatively). You do have significant risk factors for underlying heart disease and you are at risk for having a heart attack given the elevated blood pressure,elevated cholesterol, tobacco abuse, and being a male. The medication changes and addition of aspirin is to help stratify all of these risks to best decrease your risk of having a cardiac event. That being said, I strongly encouraged tobacco cessation! You should maintain a low-fat diet. Avoid trans and saturated fats. Replace red meats with white meats in your diet and I encourage fish as this has good fats to help with your cholesterol. Given the addition of the lisinopril and the change in your cholesterol medication, you will need repeat blood work in approximately 1 month and again in 3 months. This is to be ordered by your PCP. I do advise follow-up with your PCP within 7 to 10 days. Return to the ED for any new or worsening symptoms. Pending Studies at Discharge: No Stand-Alone Forms: My [facility], Smoking Cessation Medications and DC Order Prescriptions: New lisinopril 10 mg Tablet 10 mg PO QAM Qty: 30 RF: 0 rosuvastatin [Crestor] 40 mg tablet 40 mg PO DAILY Qty: 30 RF: 0 aspirin [Enteric Coated Aspirin] 81 mg tablet,delayed release (DR/EC) 81 mg PO DAILY Qty: 30 RF: 0 Continued sertraline 25 mg tablet 25 mg PO DAILY Qty: 30 RF: 5 metoprolol tartrate 50 mg tablet 50 mg PO BID Qty: 180 RF: 3 hydrochlorothiazide 25 mg tablet 25 mg PO DAILY Qty: 90 RF: 3 Discontinued simvastatin 40 mg tablet 40 mg PO QPM Qty: 90 RF: 3 Discharge Orders: Discharge Order (Routine); Ordered 11/07/21 Ordered By: Liliana Curtis/Other Patient Handouts: A1C, Low-Fat Cooking Tips, ED Low-Cholesterol Diet Admission Data Admit Date/Time: 11/06/21 20:27 Attending Provider: Edison Nath Admit Provider: Joyce Montero Primary Care Provider: Didi Posadas Other Providers: Joyce Montero ; Khang Daugherty Coding Level of Care Code 50936 OBS Care - Discharge Diagnoses Chest pain at rest R07.9 HTN (hypertension) I10 HLD (hyperlipidemia) E78.5 Anxiety F41.9 Depression F32.9
--- NOTE | 2021-11-07 21:07 | XCELERA ---
[id number]
--- NOTE | 2021-11-08 05:59 | Electrocardiogram Report ---
Test Reason : Blood Pressure : / mmHG Vent. Rate : 064 BPM Atrial Rate : 064 BPM P-R Int : 170 ms QRS Dur : 110 ms QT Int : 448 ms P-R-T Axes : 028 -29 063 degrees QTc Int : 462 ms Normal sinus rhythm Incomplete right bundle branch block Moderate voltage criteria for LVH, may be normal variant Nonspecific T wave abnormality Abnormal ECG When compared with ECG of 15-NOV-2020 11:00, T wave inversion no longer evident in Inferior leads Confirmed by Frank Oliva ([id number]) on 11/08/2021 5:59:32 AM Referred By: REFERRED SELF Confirmed By:Frank Oliva
== END 2021-11-07 17:34 | disposition home or self-care (01) ==
LOC: 2N 17:23 → ED 17:23 → SUATTDRO 20:27 → 2N 22:12